=== PATIENT | female | born 1945 | race Caucasian/White ===

== ENCOUNTER 2019-09-20 11:21 | Observation (INO) ==
[2019-09-20] MEDS ORDERED: 0.9 % Sodium Chloride 1,000 ML IVC ONE (13:18)
[2019-09-20] MEDS ORDERED: Prochlorperazine 10 MG/2 ML VIAL IVP ONE (13:21)
[2019-09-20 15:01] LABS: Bilirubin,Urine Negative (Negative); Blood,Urine Negative (Negative); Clarity,Urine Clear (Clear); Color,Urine Yellow (Yellow); Glucose,Urine (UA) Normal (Normal); Ketones,Urine Trace mg/dL (Negative); Leukocyte Esterase,Urine Negative (Negative); Nitrite,Urine Negative (Negative); Protein,Urine Negative (Neg-Trace); Specific Gravity,Urine 1.008 (1.010-1.025); Urobilinogen,Urine Normal (Normal)
[2019-09-20 15:09] LABS: Basophils # 0.1 K/mcL (0.0-0.2); Eosinophils # 0.1 K/mcL (0.0-0.6); Eosinophils % 1.4 %; Hemoglobin 14.3 g/dL (11.5-15.4); Immature Granulocytes % 0.3 % (0-4); Lymphocytes % 25.6 %; Mean Corpuscular HGB Conc 32.5 g/dL (31.6-35.5); Mean Corpuscular Hemoglobin 28.5 pg (28.0-33.3); Mean Corpuscular Volume 87.8 fL (83.0-100.0); Mean Platelet Volume 9.7 fL (9.4-12.4); Monocytes # 0.4 K/mcL (0.0-1.3); Monocytes % 5.7 %; Neutrophils # 5.1 K/mcL (1.6-8.9); Platelet Count 306 K/mcL (140-400); Red Blood Count 5.01 M/mcL (3.82-4.97); Red Cell Distribution Width 12.8 % (11.5-14.5); White Blood Count 7.8 K/mcL (4.3-11.1)
[2019-09-20 15:15] LABS: VBG HCO3 27 mEq/L (21-27); VBG PCO2 49 mmHg (41-51); VBG PH 7.35 pH Units (7.32-7.42); VBG PO2 95 mmHg (25-50)
[2019-09-20 15:23] LABS: Amphetamine Screen,Urine Negative ng/mL (Cutoff=1000); Barbiturate Screen,Urine Negative ng/mL (Cutoff=200); Benzodiazepines Screen,Urine Negative ng/mL (Cutoff=200); Cannabinoid Screen,Urine Negative ng/mL (Cutoff = 50); Cocaine Screen,Urine Negative ng/mL (Cutoff= 300); Opiate Screen,Urine Negative ng/mL (Cutoff=300); Phencyclidine Screen,Urine Negative ng/mL (Cutoff=25)
[2019-09-20 15:29] LABS: Acetaminophen < 10 mcg/mL (10-20); BUN/Creatinine Ratio 16 (6-26); Blood Urea Nitrogen 16 mg/dL (8-23); Calcium 10.2 mg/dL (8.6-10.3); Carbon Dioxide 28 mEq/L (23-29); Chloride 105 mEq/L (98-107); Glucose 91 mg/dL (70-105); Magnesium 2.2 mg/dL (1.6-2.6); Osmolality,Calculated 293 (280-300); Sodium 141 mEq/L (136-145); eGFR For African Americans > 60 (> 60); eGFR For Non-African Americans 56 (> 60)
[2019-09-20] MEDS ORDERED: Ketorolac 15 MG/ML VIAL IVP ONE (15:32)
[2019-09-20] MEDS ORDERED: Isovue-370 500 ML BOTTLE IVP ONE (15:37)
[2019-09-20] MEDS ORDERED: Ondansetron 4 MG/2 ML VIAL IVP PRN (17:21)
[2019-09-20] MEDS ORDERED: Naloxone 0.4 MG/ML INJ IVP PRN (17:21)
[2019-09-20] MEDS ORDERED: Ketorolac 15 MG/ML VIAL IVP PRN (17:38)
[2019-09-20] MEDS: Carbidopa/Levodopa 25/100 TABLET PO SCH (21:07)
[2019-09-20] MEDS: *HR* Heparin 5,000 UNIT/ML VIAL SQ SCH (21:07)
[2019-09-21] MEDS: *HR* Heparin 5,000 UNIT/ML VIAL SQ SCH ×2 (05:27→14:05)
[2019-09-21 07:02] LABS: BUN/Creatinine Ratio 18 (6-26); Blood Urea Nitrogen 17 mg/dL (8-23); Carbon Dioxide 27 mEq/L (23-29); Chloride 103 mEq/L (98-107); Glucose 140 mg/dL (70-105); Osmolality,Calculated 296 (280-300); Potassium 3.5 mEq/L (3.5-5.1); Sodium 141 mEq/L (136-145); eGFR For African Americans > 60 (> 60); eGFR For Non-African Americans 58 (> 60)
[2019-09-21] MEDS: Carbidopa/Levodopa 25/100 TABLET PO SCH ×2 (08:33→12:07)
[2019-09-21 15:22] VITALS: BP 138/78
== END 2019-09-21 16:50 | disposition home or self-care (01) ==
LOC: EMEROOARM 11:21 → 3ANU 11:21 → SUATTDRO 17:27 → 3ANU 18:32
PROVIDERS: ADMIT Internal Medicine; ATTEND Family Medicine

== ENCOUNTER 2019-11-26 14:06 | Observation (INO) ==
[2019-11-26 14:57] LABS: Basophils # 0.1 K/mcL (0.0-0.2); Eosinophils # 0.1 K/mcL (0.0-0.6); Eosinophils % 1.5 %; Hematocrit 40.7 % (35.3-44.9); Hemoglobin 13.5 g/dL (11.5-15.4); Immature Granulocytes % 0.4 % (0-4); Lymphocytes # 1.4 K/mcL (0.6-4.6); Mean Corpuscular HGB Conc 33.2 g/dL (31.6-35.5); Mean Corpuscular Hemoglobin 28.8 pg (28.0-33.3); Mean Platelet Volume 9.4 fL (9.4-12.4); Monocytes # 0.4 K/mcL (0.0-1.3); Monocytes % 5.2 %; Neutrophils # 5.9 K/mcL (1.6-8.9); Platelet Count 281 K/mcL (140-400); Red Blood Count 4.68 M/mcL (3.82-4.97); Red Cell Distribution Width 12.8 % (11.5-14.5); Segmented Neutrophils % 73.9 %
[2019-11-26 15:01] LABS: Prothrombin Time 10.9 Seconds (9.4-12.1)
[2019-11-26 16:01] LABS: BUN/Creatinine Ratio 16 (6-26); Blood Urea Nitrogen 17 mg/dL (8-23); Carbon Dioxide 28 mEq/L (23-29); Chloride 103 mEq/L (98-107); Glucose 130 mg/dL (70-105); Osmolality,Calculated 291 (280-300); Potassium 3.9 mEq/L (3.5-5.1); Sodium 139 mEq/L (136-145); Troponin I < 0.03 ng/mL (< 0.04); eGFR For African Americans > 60 (> 60); eGFR For Non-African Americans 50 (> 60)
[2019-11-26] MEDS ORDERED: Ondansetron 4 MG/2 ML VIAL IVP PRN (17:27)
[2019-11-26] MEDS ORDERED: Naloxone 0.4 MG/ML INJ IVP PRN (17:27)
[2019-11-26] MEDS: *HR* Heparin 5,000 UNIT/ML VIAL SQ SCH (22:42)
[2019-11-27 01:23] LABS: Adenovirus Not Detected (Not Detect); Bordetella Pertussis Not Detected (Not Detect); Chlamydophila pneumoniae Not Detected (Not Detect); Coronavirus 229E Not Detected (Not Detect); Coronavirus HKU1 Not Detected (Not Detect); Coronavirus NL63 Not Detected (Not Detect); Coronavirus OC43 Not Detected (Not Detect); Human Metapneumovirus Not Detected (Not Detect); Human Rhinovirus/Enterovirus Not Detected (Not Detect); Influenza A Subtype 2009 H1 Not Detected (Not Detect); Influenza B Not Detected (Not Detect); Mycoplasma pneumoniae Not Detected (Not Detect); Parainfluenza Virus 1 Not Detected (Not Detect); Parainfluenza Virus 2 Not Detected (Not Detect); Parainfluenza Virus 3 Not Detected (Not Detect); Parainfluenza Virus 4 Not Detected (Not Detect); Respiratory Syncytial Virus Not Detected (Not Detect)
[2019-11-27 05:25] LABS: Basophils # 0.1 K/mcL (0.0-0.2); Basophils % 0.8 %; Eosinophils # 0.3 K/mcL (0.0-0.6); Eosinophils % 3.4 %; Hematocrit 42.6 % (35.3-44.9); Hemoglobin 13.2 g/dL (11.5-15.4); Immature Granulocytes % 0.1 % (0-4); Mean Corpuscular Hemoglobin 28.4 pg (28.0-33.3); Mean Corpuscular Volume 91.6 fL (83.0-100.0); Mean Platelet Volume 9.4 fL (9.4-12.4); Monocytes # 0.5 K/mcL (0.0-1.3); Monocytes % 6.6 %; Neutrophils # 4.8 K/mcL (1.6-8.9); Platelet Count 260 K/mcL (140-400); Red Blood Count 4.65 M/mcL (3.82-4.97); Red Cell Distribution Width 12.7 % (11.5-14.5); Segmented Neutrophils % 63.1 %; White Blood Count 7.6 K/mcL (4.3-11.1)
[2019-11-27 05:40] LABS: BUN/Creatinine Ratio 16 (6-26); Blood Urea Nitrogen 16 mg/dL (8-23); Calcium 9.6 mg/dL (8.6-10.3); Carbon Dioxide 28 mEq/L (23-29); Chloride 108 mEq/L (98-107); Glucose 94 mg/dL (70-105); Magnesium 2.3 mg/dL (1.6-2.6); Osmolality,Calculated 297 (280-300); Sodium 143 mEq/L (136-145); eGFR For African Americans > 60 (> 60); eGFR For Non-African Americans 56 (> 60)
[2019-11-27 08:14] VITALS: BP 161/73
[2019-11-27] MEDS: *HR* Heparin 5,000 UNIT/ML VIAL SQ SCH (08:35)
[2019-11-27] MEDS ORDERED: Carbidopa/Levodopa 25/100 TABLET PO SCH (09:00)
== END 2019-11-27 11:54 | disposition home or self-care (01) ==
LOC: 3BNU 14:06 → EMEROOARM 14:06 → SUATTDRO 19:34 → 3BNU 20:03
PROVIDERS: ADMIT Pharmacist; ATTEND Internal Medicine

== ENCOUNTER 2020-03-06 03:55 | Inpatient (IN) ==
[2020-03-06 04:30] LABS: INR 0.9; Prothrombin Time 9.9 Seconds (9.4-12.1)
[2020-03-06 04:31] LABS: Bilirubin,Urine Negative (Negative); Blood,Urine Negative (Negative); Clarity,Urine Cloudy (Clear); Color,Urine Orange (Yellow); Glucose,Urine (UA) Normal (Normal); Ketones,Urine Negative (Negative); Leukocyte Esterase,Urine Trace (Negative); Nitrite,Urine Positive (Negative); Protein,Urine Negative (Neg-Trace); Specific Gravity,Urine 1.011 (1.010-1.025); Urobilinogen,Urine Normal (Normal)
[2020-03-06 04:32] LABS: Basophils # 0.1 K/mcL (0.0-0.2); Basophils % 1.2 %; Eosinophils # 0.4 K/mcL (0.0-0.6); Eosinophils % 5.8 %; Hematocrit 42.2 % (35.3-44.9); Hemoglobin 13.5 g/dL (11.5-15.4); Immature Granulocytes % 0.3 % (0-4); Lymphocytes # 2.6 K/mcL (0.6-4.6); Lymphocytes % 33.9 %; Mean Corpuscular Hemoglobin 29.1 pg (28.0-33.3); Mean Corpuscular Volume 90.9 fL (83.0-100.0); Mean Platelet Volume 9.3 fL (9.4-12.4); Monocytes # 0.4 K/mcL (0.0-1.3); Monocytes % 5.8 %; Platelet Count 263 K/mcL (140-400); Red Blood Count 4.64 M/mcL (3.82-4.97); Red Cell Distribution Width 12.3 % (11.5-14.5); White Blood Count 7.6 K/mcL (4.3-11.1)
[2020-03-06 04:33] LABS: Bacteria,Urine None Seen per hpf (None-Few); Hyaline Casts,Urine None Seen per lpf (None-Few); WBC,Urine 0-3 per hpf (0-3)
[2020-03-06 04:33] LABS: Activated Partial Thrombo Time 30.5 Seconds (26.0-36.0)
[2020-03-06 04:38] LABS: Amphetamine Screen,Urine Negative ng/mL (Cutoff=1000); Barbiturate Screen,Urine Negative ng/mL (Cutoff=200); Benzodiazepines Screen,Urine Negative ng/mL (Cutoff=200); Cannabinoid Screen,Urine Negative ng/mL (Cutoff = 50); Cocaine Screen,Urine Negative ng/mL (Cutoff= 300); Opiate Screen,Urine Negative ng/mL (Cutoff=300); Phencyclidine Screen,Urine Negative ng/mL (Cutoff=25)
[2020-03-06 04:49] LABS: Alanine Aminotransferase 12 Units/L (7-52); Albumin 4.2 g/dL (3.5-5.7); Albumin/Globulin Ratio 1.6 (1.1-2.2); Alkaline Phosphatase 58 Units/L (34-104); Aspartate Amino Transferase 17 Units/L (13-39); BUN/Creatinine Ratio 17 (6-26); Bilirubin,Direct 0.1 mg/dL (0.0-0.2); Bilirubin,Indirect 0.3 mg/dL (0.0-1.0); Bilirubin,Total 0.4 mg/dL (0.3-1.0); Blood Urea Nitrogen 19 mg/dL (8-23); Calcium 10.1 mg/dL (8.6-10.3); Carbon Dioxide 30 mEq/L (23-29); Chloride 104 mEq/L (98-107); Ethanol < 10 mg/dL (Less than 10); Globulin 2.7 g/dL (2.4-3.5); Glucose 101 mg/dL (70-105); Osmolality,Calculated 294 (280-300); Potassium 3.7 mEq/L (3.5-5.1); Sodium 141 mEq/L (136-145); Total Protein 6.9 g/dL (6.4-8.9); Troponin I < 0.03 ng/mL (< 0.04); eGFR For African Americans 59 (> 60); eGFR For Non-African Americans 48 (> 60)
[2020-03-06] MEDS ORDERED: cefTRIAXone 1,000 MG in Water for inj. (sterile) 10 ML IVP ONE (05:11)
[2020-03-06 05:18] LABS: RBC,Urine 0-3 per hpf (0-3); Squamous Epithelial Cell,Urine Few per lpf (None-Few)
[2020-03-06] MEDS ORDERED: Naloxone 0.4 MG/ML INJ IVP PRN (05:43)
[2020-03-06] MEDS ORDERED: *HR* Promethazine 25 MG/ML VIAL IVP PRN (06:00)
[2020-03-06] MEDS: 0.9 % Sodium Chloride 1,000 ML IVC SCH ×2 (06:33→20:25)
[2020-03-06] MEDS: *HR* Heparin 5,000 UNIT/ML VIAL SQ SCH ×3 (06:33→21:59)
[2020-03-06 06:41] LABS: Magnesium 2.2 mg/dL (1.6-2.6)
[2020-03-06 06:42] LABS: Phosphorous 4.1 mg/dL (2.7-4.5)
[2020-03-06 06:51] LABS: Vitamin B12 805 pg/mL (250-1100)
[2020-03-06] MEDS: lisinopriL 10 MG TABLET PO SCH ×2 (10:36→10:47)
[2020-03-06] MEDS: Ondansetron 4 MG/2 ML VIAL IVP SCH ×3 (10:45→23:47)
[2020-03-06 11:45] LABS: Vitamin D 25 Hydroxy 25 ng/mL (30-80)
[2020-03-06] MEDS: Acetaminophen 325 MG TABLET PO PRN (15:36)
[2020-03-07] MEDS: Acetaminophen 325 MG TABLET PO PRN ×2 (03:31→11:16)
[2020-03-07] MEDS: Ondansetron 4 MG/2 ML VIAL IVP SCH ×3 (05:36→17:27)
[2020-03-07] MEDS: cefTRIAXone 1,000 MG in 0.9 % Sodium Chloride Mini Bag 100 ML IVPB SCH (05:36)
[2020-03-07] MEDS: *HR* Heparin 5,000 UNIT/ML VIAL SQ SCH ×3 (05:36→21:41)
[2020-03-07 06:39] LABS: Hematocrit 38.7 % (35.3-44.9); Hemoglobin 12.4 g/dL (11.5-15.4); Mean Corpuscular Volume 90.6 fL (83.0-100.0); Mean Platelet Volume 9.4 fL (9.4-12.4); Platelet Count 243 K/mcL (140-400); Red Blood Count 4.27 M/mcL (3.82-4.97); Red Cell Distribution Width 12.3 % (11.5-14.5); White Blood Count 9.8 K/mcL (4.3-11.1)
[2020-03-07 06:43] LABS: Prothrombin Time 10.8 Seconds (9.4-12.1)
[2020-03-07 07:02] LABS: BUN/Creatinine Ratio 16 (6-26); Blood Urea Nitrogen 13 mg/dL (8-23); Calcium 9.2 mg/dL (8.6-10.3); Carbon Dioxide 24 mEq/L (23-29); Chloride 110 mEq/L (98-107); Glucose 101 mg/dL (70-105); Magnesium 2.1 mg/dL (1.6-2.6); Osmolality,Calculated 296 (280-300); Phosphorous 2.9 mg/dL (2.7-4.5); Potassium 3.5 mEq/L (3.5-5.1); Sodium 143 mEq/L (136-145); eGFR For African Americans > 60 (> 60); eGFR For Non-African Americans > 60 (> 60)
[2020-03-07] MEDS: lisinopriL 10 MG TABLET PO SCH (11:16)
[2020-03-07] MEDS: 0.9 % Sodium Chloride 1,000 ML IVC SCH (19:27)
[2020-03-08] MEDS: 0.9 % Sodium Chloride 1,000 ML IVC SCH (00:02)
[2020-03-08] MEDS: Ondansetron 4 MG/2 ML VIAL IVP SCH ×2 (00:06→06:38)
[2020-03-08] MEDS: *HR* Heparin 5,000 UNIT/ML VIAL SQ SCH (06:38)
[2020-03-08] MEDS: cefTRIAXone 1,000 MG in 0.9 % Sodium Chloride Mini Bag 100 ML IVPB SCH (06:40)
[2020-03-08] MEDS ORDERED: Cosyntropin 250 MCG/2 ML VIAL IVP ONE (08:47)
[2020-03-08] MEDS: lisinopriL 10 MG TABLET PO SCH (08:53)
[2020-03-08] MEDS ORDERED: Ondansetron ODT 4 MG TAB.RAPDIS SL PRN (11:11)
[2020-03-08 11:38] VITALS: BP 133/63
[2020-03-08] MEDS: Acetaminophen 325 MG TABLET PO PRN (13:08)
== END 2020-03-08 14:05 | disposition home health service (06) | DRG 690 ==
LOC: 3BNU 03:55 → EMEROOARM 03:55 → SUATTDRO 05:30 → 3BNU 06:06
PROVIDERS: ADMIT Student in an Organized Health Care Education/Training Program; ATTEND Internal Medicine

== ENCOUNTER 2020-05-17 09:21 | Inpatient (IN) ==
[2020-05-17 10:16] LABS: Bilirubin,Urine Negative (Negative); Blood,Urine Negative (Negative); Clarity,Urine Clear (Clear); Color,Urine Colorless (Yellow); Glucose,Urine (UA) Normal (Normal); Ketones,Urine Negative (Negative); Leukocyte Esterase,Urine Negative (Negative); Nitrite,Urine Negative (Negative); Protein,Urine Negative (Neg-Trace); Urobilinogen,Urine Normal (Normal)
[2020-05-17 10:17] LABS: Basophils # 0.1 K/mcL (0.0-0.2); Basophils % 0.9 %; Eosinophils # 0.4 K/mcL (0.0-0.6); Hematocrit 44.9 % (35.3-44.9); Hemoglobin 14.5 g/dL (11.5-15.4); Immature Granulocytes % 0.3 % (0-4); Lymphocytes # 2.7 K/mcL (0.6-4.6); Lymphocytes % 26.2 %; Mean Corpuscular HGB Conc 32.3 g/dL (31.6-35.5); Mean Corpuscular Hemoglobin 29.4 pg (28.0-33.3); Mean Corpuscular Volume 91.1 fL (83.0-100.0); Mean Platelet Volume 9.5 fL (9.4-12.4); Monocytes # 0.6 K/mcL (0.0-1.3); Monocytes % 5.5 %; Neutrophils # 6.5 K/mcL (1.6-8.9); Platelet Count 331 K/mcL (140-400); Red Blood Count 4.93 M/mcL (3.82-4.97); Segmented Neutrophils % 63.1 %; White Blood Count 10.3 K/mcL (4.3-11.1)
[2020-05-17 10:40] LABS: Alanine Aminotransferase 14 Units/L (7-52); Albumin 4.8 g/dL (3.5-5.7); Albumin/Globulin Ratio 1.7 (1.1-2.2); Alkaline Phosphatase 63 Units/L (34-104); Aspartate Amino Transferase 17 Units/L (13-39); BUN/Creatinine Ratio 24 (6-26); Bilirubin,Total 0.3 mg/dL (0.3-1.0); Blood Urea Nitrogen 24 mg/dL (8-23); Calcium 10.7 mg/dL (8.6-10.3); Carbon Dioxide 29 mEq/L (23-29); Chloride 101 mEq/L (98-107); Globulin 2.9 g/dL (2.4-3.5); Glucose 115 mg/dL (70-105); Osmolality,Calculated 291 (280-300); Potassium 4.1 mEq/L (3.5-5.1); Sodium 138 mEq/L (136-145); Total Protein 7.7 g/dL (6.4-8.9); Troponin I < 0.03 ng/mL (< 0.04); eGFR For African Americans > 60 (> 60); eGFR For Non-African Americans 54 (> 60)
[2020-05-17] MEDS ORDERED: Ondansetron 4 MG/2 ML VIAL IVP ONE (10:40)
[2020-05-17] MEDS ORDERED: 0.9 % Sodium Chloride 1,000 ML IVC STA (10:47)
[2020-05-17] MEDS ORDERED: Ketorolac 15 MG/ML VIAL IVP ONE (10:47)
[2020-05-17] MEDS ORDERED: Ondansetron 4 MG/2 ML VIAL IVP PRN (11:37)
[2020-05-17] MEDS ORDERED: Naloxone 0.4 MG/ML INJ IVP PRN (11:37)
[2020-05-17] MEDS ORDERED: *HR* Labetalol 20 MG/4 ML SYRINGE IVP ONE (13:27)
[2020-05-17] MEDS: 0.9 % Sodium Chloride 1,000 ML IVC SCH (13:46)
[2020-05-17] MEDS ORDERED: Perflutren Lipid Microsphere 1.3 ML in 0.9 % Sodium Chloride 8.7 ML IVP PRN (13:57)
[2020-05-17] MEDS ORDERED: ALPRAZolam 0.25 MG TABLET PO PRN (14:23)
[2020-05-17 14:52] LABS: C-Reactive Protein < 5 mg/L (Less than 10); Creatine Kinase 38 Units/L (30-223)
[2020-05-17 14:53] LABS: Thyroid Stimulating Hormone 2.188 mcIU/mL (0.340-5.600)
[2020-05-17] MEDS: carvediloL 6.25 MG TABLET PO SCH (15:19)
[2020-05-17 16:12] LABS: Adenovirus Not Detected (Not Detect); Bordetella Pertussis Not Detected (Not Detect); Chlamydophila pneumoniae Not Detected (Not Detect); Coronavirus 229E Not Detected (Not Detect); Coronavirus HKU1 Not Detected (Not Detect); Coronavirus NL63 Not Detected (Not Detect); Coronavirus OC43 Not Detected (Not Detect); Human Metapneumovirus Not Detected (Not Detect); Human Rhinovirus/Enterovirus Not Detected (Not Detect); Influenza A Subtype 2009 H1 Not Detected (Not Detect); Influenza B Not Detected (Not Detect); Mycoplasma pneumoniae Not Detected (Not Detect); Parainfluenza Virus 1 Not Detected (Not Detect); Parainfluenza Virus 2 Not Detected (Not Detect); Parainfluenza Virus 3 Not Detected (Not Detect); Parainfluenza Virus 4 Not Detected (Not Detect); Respiratory Syncytial Virus Not Detected (Not Detect)
[2020-05-17] MEDS: *HR* Heparin 5,000 UNIT/ML VIAL SQ SCH (18:14)
[2020-05-17] MEDS: Carbidopa/Levodopa 25/100 TABLET PO SCH (21:12)
[2020-05-18 02:49] LABS: BUN/Creatinine Ratio 30 (6-26); Blood Urea Nitrogen 24 mg/dL (8-23); Calcium 9.1 mg/dL (8.6-10.3); Carbon Dioxide 26 mEq/L (23-29); Chloride 106 mEq/L (98-107); Glucose 93 mg/dL (70-105); Osmolality,Calculated 292 (280-300); Phosphorous 3.6 mg/dL (2.7-4.5); Potassium 3.9 mEq/L (3.5-5.1); Sodium 139 mEq/L (136-145); eGFR For African Americans > 60 (> 60); eGFR For Non-African Americans > 60 (> 60)
[2020-05-18] MEDS: *HR* Heparin 5,000 UNIT/ML VIAL SQ SCH ×2 (04:58→18:24)
[2020-05-18] MEDS: 0.9 % Sodium Chloride 1,000 ML IVC SCH (04:59)
[2020-05-18] MEDS: carvediloL 6.25 MG TABLET PO SCH ×2 (09:24→15:28)
[2020-05-18] MEDS: Carbidopa/Levodopa 25/100 TABLET PO SCH ×3 (09:24→20:18)
[2020-05-18] MEDS: predniSONE 20 MG TABLET PO SCH (12:07)
[2020-05-18 13:11] LABS: Folate > 22.3 ng/mL (3.0-16.0); Vitamin B12 502 pg/mL (250-1100)
[2020-05-19] MEDS: *HR* Heparin 5,000 UNIT/ML VIAL SQ SCH ×2 (05:12→16:46)
[2020-05-19] MEDS: predniSONE 20 MG TABLET PO SCH (07:21)
[2020-05-19] MEDS: carvediloL 6.25 MG TABLET PO SCH ×2 (07:21→16:46)
[2020-05-19] MEDS: Carbidopa/Levodopa 25/100 TABLET PO SCH ×3 (07:23→20:52)
[2020-05-19] MEDS ORDERED: carvediloL 6.25 MG TABLET PO ONE (08:50)
[2020-05-20] MEDS: *HR* Heparin 5,000 UNIT/ML VIAL SQ SCH ×2 (04:03→15:30)
[2020-05-20] MEDS ORDERED: *HR* Labetalol 20 MG/4 ML SYRINGE IVP ONE (04:11)
[2020-05-20] MEDS: Carbidopa/Levodopa 25/100 TABLET PO SCH ×3 (07:43→21:01)
[2020-05-20] MEDS: predniSONE 20 MG TABLET PO SCH (07:45)
[2020-05-20] MEDS: carvediloL 6.25 MG TABLET PO SCH ×2 (07:45→15:30)
[2020-05-20] MEDS: Sennosides/Docusate Sodium TABLET PO SCH (11:17)
[2020-05-21 01:35] LABS: Hemoglobin 11.3 g/dL (11.5-15.4); Mean Corpuscular HGB Conc 32.3 g/dL (31.6-35.5); Mean Corpuscular Hemoglobin 29.7 pg (28.0-33.3); Mean Corpuscular Volume 92.1 fL (83.0-100.0); Mean Platelet Volume 9.9 fL (9.4-12.4); Platelet Count 265 K/mcL (140-400); Red Cell Distribution Width 12.4 % (11.5-14.5); White Blood Count 14.2 K/mcL (4.3-11.1)
[2020-05-21 01:54] LABS: BUN/Creatinine Ratio 47 (6-26); Blood Urea Nitrogen 34 mg/dL (8-23); Calcium 9.2 mg/dL (8.6-10.3); Carbon Dioxide 28 mEq/L (23-29); Chloride 103 mEq/L (98-107); Glucose 103 mg/dL (70-105); Magnesium 2.2 mg/dL (1.6-2.6); Osmolality,Calculated 292 (280-300); Potassium 4.4 mEq/L (3.5-5.1); Sodium 137 mEq/L (136-145); eGFR For African Americans > 60 (> 60); eGFR For Non-African Americans > 60 (> 60)
[2020-05-21] MEDS: *HR* Heparin 5,000 UNIT/ML VIAL SQ SCH (05:35)
[2020-05-21] MEDS: predniSONE 20 MG TABLET PO SCH (07:45)
[2020-05-21] MEDS: carvediloL 6.25 MG TABLET PO SCH (07:45)
[2020-05-21] MEDS: Carbidopa/Levodopa 25/100 TABLET PO SCH (07:45)
[2020-05-21] MEDS: Sennosides/Docusate Sodium TABLET PO SCH (07:45)
[2020-05-21 09:24] LABS: Basophils # 0.1 K/mcL (0.0-0.2); Basophils % 0.4 %; Eosinophils # 0.1 K/mcL (0.0-0.6); Eosinophils % 0.6 %; Hematocrit 35.7 % (35.3-44.9); Hemoglobin 11.6 g/dL (11.5-15.4); Immature Granulocytes % 0.7 % (0-4); Lymphocytes # 2.8 K/mcL (0.6-4.6); Lymphocytes % 23.1 %; Mean Corpuscular HGB Conc 32.5 g/dL (31.6-35.5); Mean Corpuscular Hemoglobin 30.3 pg (28.0-33.3); Mean Corpuscular Volume 93.2 fL (83.0-100.0); Mean Platelet Volume 10.2 fL (9.4-12.4); Monocytes # 0.9 K/mcL (0.0-1.3); Monocytes % 7.2 %; Neutrophils # 8.2 K/mcL (1.6-8.9); Platelet Count 267 K/mcL (140-400); Red Blood Count 3.83 M/mcL (3.82-4.97); Red Cell Distribution Width 12.5 % (11.5-14.5); White Blood Count 12.1 K/mcL (4.3-11.1)
[2020-05-21 11:13] VITALS: BP 119/68
== END 2020-05-21 12:24 | DRG 304 ==
LOC: EMEROOARM 09:21 → 2ANU 09:21 → SUATTDRO 11:37 → 2ANU 12:29 → 3BNU 12:56 → SUATTDRO 05-18 11:42
PROVIDERS: ADMIT Internal Medicine; ATTEND Internal Medicine

== ENCOUNTER 2021-03-27 14:18 | Inpatient (IN) ==
[2021-03-27 16:38] LABS: Basophils # 0.1 K/mcL (0.0-0.2); Basophils % 0.9 %; Eosinophils # 0.2 K/mcL (0.0-0.6); Eosinophils % 1.3 %; Hematocrit 41.3 % (35.3-44.9); Immature Granulocytes % 0.3 % (0-4); Lymphocytes # 1.8 K/mcL (0.6-4.6); Lymphocytes % 15.8 %; Mean Corpuscular HGB Conc 31.5 g/dL (31.6-35.5); Mean Corpuscular Hemoglobin 28.6 pg (28.0-33.3); Mean Platelet Volume 9.2 fL (9.4-12.4); Monocytes # 0.9 K/mcL (0.0-1.3); Monocytes % 7.3 %; Neutrophils # 8.7 K/mcL (1.6-8.9); Platelet Count 304 K/mcL (140-400); Red Blood Count 4.54 M/mcL (3.82-4.97); Segmented Neutrophils % 74.4 %; White Blood Count 11.7 K/mcL (4.3-11.1)
[2021-03-27] MEDS ORDERED: 0.9 % Sodium Chloride 1,000 ML IVC ONE (16:51)
[2021-03-27] MEDS ORDERED: Isovue-370 500 ML BOTTLE IVP ONE (16:58)
[2021-03-27 17:06] LABS: BUN/Creatinine Ratio 19 (6-26); Blood Urea Nitrogen 19 mg/dL (8-23); Carbon Dioxide 28 mEq/L (23-29); Chloride 102 mEq/L (98-107); Glucose 143 mg/dL (70-105); Osmolality,Calculated 289 (280-300); Potassium 4.2 mEq/L (3.5-5.1); Sodium 137 mEq/L (136-145); Troponin I < 0.03 ng/mL (< 0.04); eGFR For African Americans > 60 (> 60); eGFR For Non-African Americans 56 (> 60)
[2021-03-27 19:56] LABS: Bilirubin,Urine Negative (Negative); Blood,Urine Negative (Negative); Clarity,Urine Clear (Clear); Color,Urine Colorless (Yellow); Glucose,Urine (UA) Normal (Normal); Ketones,Urine Negative (Negative); Leukocyte Esterase,Urine Negative (Negative); Nitrite,Urine Negative (Negative); Protein,Urine Negative (Neg-Trace); Specific Gravity,Urine > 1.030 (1.010-1.025); Urobilinogen,Urine Normal (Normal)
[2021-03-27] MEDS ORDERED: Naloxone 0.4 MG/ML INJ IVP PRN (21:15)
[2021-03-27] MEDS ORDERED: Acetaminophen 325 MG TABLET PO PRN (21:15)
[2021-03-27] MEDS ORDERED: Ondansetron ODT 4 MG TAB.RAPDIS SL PRN (21:15)
[2021-03-27] MEDS ORDERED: Melatonin 3 MG TABLET PO ONE (23:00)
[2021-03-28 05:47] LABS: Basophils # 0.1 K/mcL (0.0-0.2); Basophils % 1.2 %; Eosinophils # 0.3 K/mcL (0.0-0.6); Eosinophils % 3.9 %; Hematocrit 36.3 % (35.3-44.9); Hemoglobin 11.9 g/dL (11.5-15.4); Immature Granulocytes % 0.4 % (0-4); Lymphocytes # 2.3 K/mcL (0.6-4.6); Lymphocytes % 31.6 %; Mean Corpuscular HGB Conc 32.8 g/dL (31.6-35.5); Mean Corpuscular Hemoglobin 29.5 pg (28.0-33.3); Mean Corpuscular Volume 89.9 fL (83.0-100.0); Mean Platelet Volume 8.9 fL (9.4-12.4); Monocytes # 0.6 K/mcL (0.0-1.3); Monocytes % 8.1 %; Platelet Count 268 K/mcL (140-400); Red Blood Count 4.04 M/mcL (3.82-4.97); Red Cell Distribution Width 12.1 % (11.5-14.5); Segmented Neutrophils % 54.8 %; White Blood Count 7.4 K/mcL (4.3-11.1)
[2021-03-28 05:58] LABS: Prothrombin Time 11.4 Seconds (9.4-12.1)
[2021-03-28 06:27] LABS: Alanine Aminotransferase 10 Units/L (7-52); Albumin 3.7 g/dL (3.5-5.7); Albumin/Globulin Ratio 1.5 (1.1-2.2); Alkaline Phosphatase 47 Units/L (34-104); Aspartate Amino Transferase 15 Units/L (13-39); BUN/Creatinine Ratio 17 (6-26); Bilirubin,Total 0.3 mg/dL (0.3-1.0); Blood Urea Nitrogen 13 mg/dL (8-23); Calcium 9.2 mg/dL (8.6-10.3); Carbon Dioxide 26 mEq/L (23-29); Chloride 107 mEq/L (98-107); Globulin 2.4 g/dL (2.4-3.5); Glucose 90 mg/dL (70-105); Lactate Dehydrogenase 122 Units/L (140-271); Osmolality,Calculated 290 (280-300); Phosphorous 3.5 mg/dL (2.7-4.5); Potassium 3.7 mEq/L (3.5-5.1); Sodium 140 mEq/L (136-145); Total Protein 6.1 g/dL (6.4-8.9); eGFR For African Americans > 60 (> 60); eGFR For Non-African Americans > 60 (> 60)
[2021-03-28 06:34] LABS: Thyroid Stimulating Hormone 3.065 mcIU/mL (0.340-5.600)
[2021-03-28] MEDS ORDERED: Carbidopa/Levodopa 25/100 TABLET PO SCH ×2 (09:00→14:03)
[2021-03-28 09:57] LABS: Estimated Average Glucose 114 mg/dl; Hemoglobin A1C 5.6 %
[2021-03-28] MEDS: *HR* Enoxaparin 30 MG/0.3 ML SYRINGE SQ SCH (10:37)
[2021-03-28] MEDS: Cholecalciferol (D-3) 1,000 UNIT (25MCG) TABLET PO SCH (15:06)
[2021-03-28] MEDS: Carbidopa/Levodopa 25/100 TABLET PO SCH ×2 (15:07→20:04)
[2021-03-28] MEDS: 0.9 % Sodium Chloride 1,000 ML IVC SCH (15:09)
[2021-03-28] MEDS: Sennosides 8.6 MG TABLET PO PRN (23:09)
[2021-03-28] MEDS: Melatonin 3 MG TABLET PO PRN (23:09)
[2021-03-29] MEDS: 0.9 % Sodium Chloride 1,000 ML IVC SCH (00:52)
[2021-03-29] MEDS: Cholecalciferol (D-3) 1,000 UNIT (25MCG) TABLET PO SCH ×2 (09:00→09:01)
[2021-03-29] MEDS: *HR* Enoxaparin 30 MG/0.3 ML SYRINGE SQ SCH (09:01)
[2021-03-29] MEDS: Carbidopa/Levodopa 25/100 TABLET PO SCH ×3 (10:46→20:22)
[2021-03-29 11:24] LABS: Bilirubin,Urine Negative (Negative); Blood,Urine Negative (Negative); Clarity,Urine Clear (Clear); Color,Urine Colorless (Yellow); Glucose,Urine (UA) Normal (Normal); Ketones,Urine Negative (Negative); Leukocyte Esterase,Urine Negative (Negative); Nitrite,Urine Negative (Negative); Protein,Urine Negative (Neg-Trace); Specific Gravity,Urine 1.009 (1.010-1.025); Urobilinogen,Urine Normal (Normal)
[2021-03-29] MEDS: cefTRIAXone 1,000 MG in Water for inj. (sterile) 10 ML IVP SCH (13:44)
[2021-03-29] MEDS: Melatonin 3 MG TABLET PO PRN (20:22)
[2021-03-29] MEDS: Sennosides 8.6 MG TABLET PO PRN (20:22)
[2021-03-30] MEDS: *HR* Enoxaparin 30 MG/0.3 ML SYRINGE SQ SCH (08:28)
[2021-03-30] MEDS: Cholecalciferol (D-3) 1,000 UNIT (25MCG) TABLET PO SCH ×2 (08:28)
[2021-03-30] MEDS: cefTRIAXone 1,000 MG in Water for inj. (sterile) 10 ML IVP SCH (08:29)
[2021-03-30] MEDS: Carbidopa/Levodopa 25/100 TABLET PO SCH ×3 (12:35→19:36)
[2021-03-30] MEDS: Melatonin 3 MG TABLET PO PRN (19:42)
[2021-03-31] MEDS: Cholecalciferol (D-3) 1,000 UNIT (25MCG) TABLET PO SCH ×2 (09:15)
[2021-03-31] MEDS: Carbidopa/Levodopa 25/100 TABLET PO SCH (09:15)
[2021-03-31] MEDS: *HR* Enoxaparin 30 MG/0.3 ML SYRINGE SQ SCH (09:16)
[2021-03-31] MEDS: cefTRIAXone 1,000 MG in Water for inj. (sterile) 10 ML IVP SCH (09:16)
[2021-03-31 09:54] LABS: Adenovirus Not Detected (Not Detect); Bordetella Pertussis Not Detected (Not Detect); Chlamydophila pneumoniae Not Detected (Not Detect); Coronavirus 229E Not Detected (Not Detect); Coronavirus HKU1 Not Detected (Not Detect); Coronavirus NL63 Not Detected (Not Detect); Coronavirus OC43 Not Detected (Not Detect); Human Metapneumovirus Not Detected (Not Detect); Human Rhinovirus/Enterovirus Not Detected (Not Detect); Influenza A Subtype 2009 H1 Not Detected (Not Detect); Influenza B Not Detected (Not Detect); Mycoplasma pneumoniae Not Detected (Not Detect); Parainfluenza Virus 1 Not Detected (Not Detect); Parainfluenza Virus 2 Not Detected (Not Detect); Parainfluenza Virus 3 Not Detected (Not Detect); Parainfluenza Virus 4 Not Detected (Not Detect); Respiratory Syncytial Virus Not Detected (Not Detect); SARS-CoV-2 Not Detected (Not Detect)
[2021-03-31 10:46] VITALS: BP 138/80
== END 2021-03-31 11:27 | disposition other institution (70) | DRG 312 ==
LOC: 3BNU 14:18 → EMEROOARM 14:18 → SUATTDRO 21:13 → 3BNU 22:08 → SUATTDRO 03-28 15:44
PROVIDERS: ADMIT Student in an Organized Health Care Education/Training Program; ATTEND Pharmacist